=== PATIENT | male | born 1955 | race Caucasian/White ===

== ENCOUNTER 2018-03-19 14:01 | Emergency (ER) | payer MEDICAID, OTHER ==
[~2018-03-19] VITALS: Ht 180.3 cm; Wt 70.4 kg
[2018-03-19 14:20] VITALS: BP 193/106
[2018-03-19] MEDS ORDERED: BACDS PO (15:02)
== END 2018-03-19 15:30 | disposition home or self-care (01) ==
LOC: ER 14:02
DX: A49.02 Methicillin resistant Staphylococcus aureus infection, unspecified site (principal); I10 Essential (primary) hypertension
CPT/HCPCS: 99283

== ENCOUNTER 2018-04-18 11:26 | Emergency (ER) | payer MEDICAID ==
[~2018-04-18] VITALS: Ht 177.8 cm; Wt 72.7 kg
[~2018-04-18 11:26] MED LIST: BACDS PO
--- NOTE | 2018-04-18 11:47 | NUR ---
did belongings at 1140 2 bags
[2018-04-18 12:03] LABS: BASOPHILS % (AUTO) 0.7 % (0-1); EOSINOPHILS # (AUTO) 0.1 X10'3 (0-0.9); EOSINOPHILS % (AUTO) 0.9 % (0-6); HEMATOCRIT 43.2 % (42.0-52.0); HEMOGLOBIN 14.9 g/dl (14.0-17.9); LYMPHOCYTES # (AUTO) 2.3 X10'3 (1.1-4.8); LYMPHOCYTES % (AUTO) 31.9 % (21-51); MEAN CORPUSCULAR HEMOGLOBIN 29.7 PG (27.0-31.0); MEAN CORPUSCULAR HGB CONC 34.4 g/dL (33.0-36.5); MEAN CORPUSCULAR VOLUME 86.3 FL (78-98); MEAN PLATELET VOLUME 8.1 FL (7.4-10.4); MONOCYTES # (AUTO) 0.7 X10'3 (0-0.9); NEUTROPHILS # (AUTO) 4.2 X10'3 (1.8-7.7); NEUTROPHILS % (AUTO) 57.5 % (42-75); PLATELET COUNT 420 X10'3 (140-440); RED CELL DISTRIBUTION WIDTH 13.6 % (11.5-14.5); WHITE BLOOD COUNT 7.2 X10'3 (4.5-11.0)
[2018-04-18 12:12] LABS: ALANINE AMINOTRANSFERASE 28 U/L (12-78); ALBUMIN 4.1 G/DL (3.4-5.0); ALBUMIN/GLOBULIN RATIO 1.3 (1.1-1.5); ALKALINE PHOSPHATASE 81 IU/L (46-116); ANION GAP 12 (8-16); ASPARTATE AMINO TRANSFERASE 23 U/L (10-37); BILIRUBIN,TOTAL 0.8 MG/DL (0.1-1.0); BLOOD UREA NITROGEN 27 MG/DL (7-18); BUN/CREATININE RATIO 28.1 (5.4-32.0); CALCIUM 9.1 MG/DL (8.5-10.1); CHLORIDE 102 MMOL/L (99-107); CREATININE 0.96 MG/DL (0.60-1.10); GLUCOSE 100 MG/DL (70-104); POTASSIUM 3.9 MMOL/L (3.5-5.1); SODIUM 139 MMOL/L (135-145); TOTAL PROTEIN 7.3 G/DL (6.4-8.2); eGFR 80 ML/MIN
[2018-04-18 12:22] LABS: ETHANOL < 0.010 GM/DL (0.0-0.010)
[2018-04-18] MEDS ORDERED: LISI-645 PO (13:23)
[2018-04-18] MEDS ORDERED: ATEN-169 PO (13:23)
--- NOTE | 2018-04-18 13:24 | NUR ---
Received from main ER, report from oZfia. Pt unwilling to talk about events bringing him to ER today. States he has never been in psychiatric facility. He has never attempted suicide. Today, he insist he was not trying to harm himself. He does state he is under a lot of stress as he is going through a divorce and his son will be getting out of assisted in 3 weeks. He states he has been staying with friends half of the month, and in a hotel for the second half. He is calm, cooperative and follows direction. Dr Dunaway at nurses station and was made aware of consult.
[2018-04-18 13:34] LABS: URINE AMPHETAMINE SCREEN POSITIVE (Neg); URINE BARBITUATE SCREEN NEGATIVE (Neg); URINE BENZODIAZEPINES SCREEN NEGATIVE (Neg); URINE CANNABINOID SCREEN NEGATIVE (Neg); URINE COCAINE SCREEN NEGATIVE (Neg); URINE METHADONE SCREEN NEGATIVE (Neg); URINE OPIATE SCREEN NEGATIVE (Neg); URINE PHENCYCLIDINE SCREEN NEGATIVE (Neg)
[2018-04-18] MEDS ORDERED: atenolol 50mg tablet PO ONE (14:25)
[2018-04-18] MEDS ORDERED: lisinopril 20mg tablet PO ONE (14:25)
[2018-04-18] MEDS: methyl salicylate/menthol cream 85gm TP PRN (14:30)
--- NOTE | 2018-04-18 14:45 | NUR ---
Dr Raya at nurses station. He stated Dr Mcpherson will be seing pt today.
[2018-04-18] MEDS ORDERED: LORazepam 1 MG tablet PO ONE (15:45)
--- NOTE | 2018-04-18 17:25 | NUR ---
Pt appears to be restless. Ativan PO given.
[2018-04-18] MEDS ORDERED: risperiDONE 0.25mg tablet PO SCH (20:00)
--- NOTE | 2018-04-18 20:00 | NUR ---
Patient states there are bugs all over his bedding turning into fish. States it can only be seen with a black light. Patient continues to remove bedding stating there are bugs. Bedding was changed and patient continues to see bugs and keeps removing his bedding. MD notified, orders receiveed.
[2018-04-18] MEDS ORDERED: risperiDONE 0.5mg tablet PO ONE (20:20)
--- NOTE | 2018-04-18 21:49 | NUR ---
Packet sent to [facility]. Spoke to Gene to clarify receipt of packet. A copy of the 5710 sent.
--- NOTE | 2018-04-18 22:30 | NUR ---
Spoke to Gene @ [facility], packet didnot arrive, but was informed that packet had been sent during day shift.
--- NOTE | 2018-04-19 00:36 | NUR ---
Covering for RN Lunch break: Patient is resting in bed with eyes closed. Resp are even and unlabored. Appearing to sleep comfortably without concerns or issues noted. Will continue to monitor.
--- NOTE | 2018-04-19 06:37 | NUR ---
Up to bathroom. U/A obtained.
[2018-04-19 07:07] LABS: CLARITY,URINE SLIGHTLY CLOUDY (Clear); COLOR,URINE YELLOW (Yellow); GLUCOSE, URINE NEGATIVE (Neg); KETONES,URINE NEGATIVE (Neg); LEUKOCYTE ESTERASE ,URINE SMALL (Neg); NITRITES, URINE NEGATIVE (Neg); OCCULT BLOOD,URINE NEGATIVE (Neg); PROTEIN,URINE NEGATIVE (Neg); UROBILINOGEN,URINE 0.2 E.U/dL (0.2-1.0)
[2018-04-19 07:10] LABS: UA COLLECTION TYPE CLN CATCH MIDSTREAM
[2018-04-19 07:14] LABS: HYALINE CASTS 0-3 /LPF (NEGATIVE); MUCUS STRANDS MODERATE /LPF (Neg); SQUAMOUS EPITHELIAL CELL,UR MODERATE /LPF (FEW)
[2018-04-19 07:15] LABS: BACTERIA,URINE 2+ /HPF (Neg); RBC,URINE 0-2 /HPF (0-2)
[2018-04-19] MEDS: risperiDONE 0.5mg tablet PO SCH ×2 (08:11→20:34)
[2018-04-19] MEDS: lisinopril 20mg tablet PO SCH (08:11)
[2018-04-19] MEDS: atenolol 50mg tablet PO SCH (08:11)
--- NOTE | 2018-04-19 08:11 | NUR ---
Took all AM meds. Continues to be calm and cooperative with care.
--- NOTE | 2018-04-19 10:03 | NUR ---
Pt is sleeping.
[2018-04-19] MEDS: methyl salicylate/menthol cream 85gm TP PRN (13:34)
--- NOTE | 2018-04-19 18:18 | NUR ---
Received report from BRIANNA Lester. Patient resting comfortably. Addendum: 04/19/18 at 1826 by JAY Colleen cano.
--- NOTE | 2018-04-19 18:26 | NUR ---
Patient resting comfortably, having dinner.
[2018-04-20] MEDS: risperiDONE 0.5mg tablet PO SCH (08:35)
[2018-04-20] MEDS: atenolol 50mg tablet PO SCH (08:36)
[2018-04-20] MEDS: lisinopril 20mg tablet PO SCH (08:37)
[2018-04-20 09:12] VITALS: BP 124/72
--- NOTE | 2018-04-20 09:15 | NUR ---
Discharge Note Pt. evaluated by Mary Beth from [facility]. Determined to be safe to be discharged to home. Dr. Herman consulted, order given to d/c pt. Pt.d/c'd to home with all personal belongings as per inventory sheet, will f/u with primary care provider.
== END 2018-04-20 09:05 | disposition home or self-care (01) ==
LOC: ER 11:26
DX: F29 Unspecified psychosis not due to a substance or known physiological condition (principal); I10 Essential (primary) hypertension; M54.2 Cervicalgia; Z79.899 Other long term (current) drug therapy
CPT/HCPCS: 36415; 80053; 80305; 80320; 81001; 84443; 85025; 87077; 87088; 87186; 99285

== ENCOUNTER 2018-04-21 17:08 | Emergency (ER) | payer MEDICAID ==
[~2018-04-21] VITALS: Ht 177.8 cm; Wt 75.0 kg
[~2018-04-21 17:08] MED LIST changes: +ATEN-169 PO; -BACDS PO; +LISI-645 PO
[2018-04-21 17:12] VITALS: BP 180/102
--- NOTE | 2018-04-21 17:18 | NUR ---
PT SEEN IN TRIAGE BY LEYLA AND FOUND TO HAVE SKIN DISCOLORATION TO LEFT LOWER ABD. NO REDDNESS, NO SWELLING, NO PAIN.
== END 2018-04-21 17:27 | disposition home or self-care (01) ==
LOC: ER 17:08
DX: L81.9 Disorder of pigmentation, unspecified (principal); I10 Essential (primary) hypertension; Z86.14 Personal history of Methicillin resistant Staphylococcus aureus infection; Z79.899 Other long term (current) drug therapy
CPT/HCPCS: 99281

== ENCOUNTER 2018-05-08 04:55 | Emergency (ER) | payer MEDICAID ==
[~2018-05-08] VITALS: Ht 177.8 cm; Wt 56.8 kg
[2018-05-08 05:18] VITALS: BP 146/93
[2018-05-08] MEDS ORDERED: ketorolac trometh inj. 60 MG/2 ML VIAL IM ONE (05:35)
== END 2018-05-08 05:44 | disposition home or self-care (01) ==
LOC: ER 04:56
DX: J06.9 Acute upper respiratory infection, unspecified (principal); G89.29 Other chronic pain; M54.2 Cervicalgia; J32.0 Chronic maxillary sinusitis; I10 Essential (primary) hypertension
CPT/HCPCS: 96372; 99283; J1885

== ENCOUNTER 2018-08-27 00:06 | Emergency (ER) | payer MEDICAID ==
[~2018-08-27] VITALS: Ht 180.3 cm; Wt 76.0 kg
[2018-08-27 00:09] VITALS: BP 119/84
[2018-08-27] MEDS ORDERED: LORazepam 1 MG tablet PO ONE (02:50)
[2018-08-27] MEDS ORDERED: ESCI10TA PO (02:50)
[2018-08-27] MEDS ORDERED: aspirin 81mg tab.chew PO ONE (03:30)
[2018-08-27] MEDS ORDERED: citalopram 20mg tablet PO ONE (08:00)
== END 2018-08-27 03:45 | disposition home or self-care (01) ==
LOC: ER 00:07
DX: F32.9 Major depressive disorder, single episode, unspecified (principal); F41.9 Anxiety disorder, unspecified; I10 Essential (primary) hypertension; G89.29 Other chronic pain; F15.90 Other stimulant use, unspecified, uncomplicated; Z86.14 Personal history of Methicillin resistant Staphylococcus aureus infection; Z79.899 Other long term (current) drug therapy
CPT/HCPCS: 99284

== ENCOUNTER 2018-11-05 02:47 | Emergency (ER) | payer MEDICAID ==
[~2018-11-05] VITALS: Ht 180.3 cm; Wt 77.3 kg
[~2018-11-05 02:47] MED LIST changes: +ESCI10TA PO
[2018-11-05 02:54] VITALS: BP 160/94
[2018-11-05] MEDS ORDERED: AMOX-580 PO (04:09)
[2018-11-05] MEDS ORDERED: NAPR-56 PO (04:09)
[2018-11-05] MEDS ORDERED: amox tr/potassium clavulanate 875/125mg TAB PO ONE (04:10)
[2018-11-05] MEDS ORDERED: naproxen 500mg tablet PO ONE (04:10)
== END 2018-11-05 04:28 | disposition home or self-care (01) ==
LOC: ER 02:48
DX: K04.7 Periapical abscess without sinus (principal); I10 Essential (primary) hypertension; G89.29 Other chronic pain; F41.9 Anxiety disorder, unspecified; F15.90 Other stimulant use, unspecified, uncomplicated; F10.99 Alcohol use, unspecified with unspecified alcohol-induced disorder; Z86.14 Personal history of Methicillin resistant Staphylococcus aureus infection; Z79.899 Other long term (current) drug therapy; Y90.9 Presence of alcohol in blood, level not specified
CPT/HCPCS: 99283

== ENCOUNTER 2018-11-14 01:55 | Emergency (ER) | payer MEDICAID ==
[~2018-11-14] VITALS: Ht 177.8 cm; Wt 75.0 kg
[~2018-11-14 01:55] MED LIST changes: +AMOX-580 PO; +NAPR-56 PO
[2018-11-14 01:58] VITALS: BP 176/58
[2018-11-14] MEDS ORDERED: PENI500T2 PO (02:09)
[2018-11-14] MEDS ORDERED: IBUP-1984 PO (02:09)
[2018-11-14] MEDS ORDERED: HYDROcodone/acetaminophen 5mg/325mg tablet PO ONE (02:10)
== END 2018-11-14 02:17 | disposition home or self-care (01) ==
LOC: ER 01:56
DX: K02.9 Dental caries, unspecified (principal); I10 Essential (primary) hypertension; G89.29 Other chronic pain; F41.9 Anxiety disorder, unspecified; F15.90 Other stimulant use, unspecified, uncomplicated; Z86.14 Personal history of Methicillin resistant Staphylococcus aureus infection; Z79.899 Other long term (current) drug therapy
CPT/HCPCS: 99283

== ENCOUNTER 2018-11-24 03:29 | Emergency (ER) | payer MEDICAID ==
[~2018-11-24] VITALS: Ht 177.8 cm; Wt 75.0 kg
[~2018-11-24 03:29] MED LIST changes: +PENI500T2 PO
[2018-11-24 03:34] VITALS: BP 154/88
--- NOTE | 2018-11-24 03:40 | NUR ---
Security summoned to be on standby as the patient is agitated and vocal.
[2018-11-24] MEDS ORDERED: ESZO3TAB32 PO (04:32)
== END 2018-11-24 04:43 | disposition home or self-care (01) ==
LOC: ER 03:30
DX: G47.00 Insomnia, unspecified (principal); G89.29 Other chronic pain; M54.2 Cervicalgia; M54.9 Dorsalgia, unspecified; I10 Essential (primary) hypertension; F41.9 Anxiety disorder, unspecified; F15.90 Other stimulant use, unspecified, uncomplicated; F10.99 Alcohol use, unspecified with unspecified alcohol-induced disorder; Z86.14 Personal history of Methicillin resistant Staphylococcus aureus infection; Z79.899 Other long term (current) drug therapy; Y90.9 Presence of alcohol in blood, level not specified
CPT/HCPCS: 99283

== ENCOUNTER 2018-12-25 16:24 | Emergency (ER) | payer MEDICAID, OTHER ==
[~2018-12-25] VITALS: Ht 177.8 cm; Wt 77.0 kg
[~2018-12-25 16:24] MED LIST changes: -AMOX-580 PO; +ESZO3TAB32 PO; -NAPR-56 PO; -PENI500T2 PO
[2018-12-25 16:32] VITALS: BP 170/111
[2018-12-25] MEDS ORDERED: PENI500T2 PO (17:42)
[2018-12-25] MEDS ORDERED: IBUP-1984 PO (17:42)
[2018-12-25] MEDS ORDERED: HYDR-4383 PO (17:42)
== END 2018-12-25 18:07 | disposition home or self-care (01) ==
LOC: ER 16:24
DX: K02.9 Dental caries, unspecified (principal); H92.02 Otalgia, left ear; R51 Headache; R22.0 Localized swelling, mass and lump, head; I10 Essential (primary) hypertension; G89.29 Other chronic pain; F41.9 Anxiety disorder, unspecified; F15.90 Other stimulant use, unspecified, uncomplicated; Z86.14 Personal history of Methicillin resistant Staphylococcus aureus infection; Z79.899 Other long term (current) drug therapy; Z79.1 Long term (current) use of non-steroidal anti-inflammatories (NSAID); Z79.2 Long term (current) use of antibiotics
CPT/HCPCS: 99283

== ENCOUNTER 2018-12-27 12:19 | Emergency (ER) | payer MEDICAID, OTHER ==
[~2018-12-27] VITALS: Ht 177.8 cm; Wt 73.0 kg
[~2018-12-27 12:19] MED LIST changes: +HYDR-4383 PO; +IBUP-1984 PO; +PENI500T2 PO
[2018-12-27] MEDS ORDERED: clindamycin 150mg capsule PO ONE (13:05)
[2018-12-27] MEDS ORDERED: CLIN300C70 PO (13:10)
[2018-12-27 13:18] VITALS: BP 115/64
[2018-12-28] MEDS ORDERED: PENI250T2 PO (17:41)
== END 2018-12-27 13:22 | disposition home or self-care (01) ==
LOC: ER 12:19
DX: K08.89 Other specified disorders of teeth and supporting structures (principal); K02.9 Dental caries, unspecified; I10 Essential (primary) hypertension; G89.29 Other chronic pain; F41.9 Anxiety disorder, unspecified; F15.90 Other stimulant use, unspecified, uncomplicated; F10.99 Alcohol use, unspecified with unspecified alcohol-induced disorder; Z86.14 Personal history of Methicillin resistant Staphylococcus aureus infection; Z79.899 Other long term (current) drug therapy; Y90.9 Presence of alcohol in blood, level not specified
CPT/HCPCS: 99283

== ENCOUNTER 2018-12-28 16:40 | Emergency (ER) | payer OTHER ==
[~2018-12-28] VITALS: Ht 177.8 cm; Wt 75.8 kg
[~2018-12-28 16:40] MED LIST changes: +CLIN300C70 PO
[2018-12-28 17:02] VITALS: BP 163/109
[2018-12-28] MEDS ORDERED: CefTRIAXone 250MG IM Kit w/LIDOcaine IM ONE (17:40)
[2018-12-28] MEDS ORDERED: PENI250T2 PO (17:41)
== END 2018-12-28 17:59 | disposition home or self-care (01) ==
LOC: ER 16:41
DX: K08.89 Other specified disorders of teeth and supporting structures (principal); I10 Essential (primary) hypertension; G89.29 Other chronic pain; F41.9 Anxiety disorder, unspecified; F15.90 Other stimulant use, unspecified, uncomplicated; F10.99 Alcohol use, unspecified with unspecified alcohol-induced disorder; Z86.14 Personal history of Methicillin resistant Staphylococcus aureus infection; Z79.899 Other long term (current) drug therapy; Y90.9 Presence of alcohol in blood, level not specified
CPT/HCPCS: 96372; 99283; J0696

== ENCOUNTER 2019-01-02 08:43 | Emergency (ER) | payer OTHER ==
[~2019-01-02] VITALS: Ht 177.8 cm; Wt 77.3 kg
[~2019-01-02 08:43] MED LIST changes: -IBUP-1984 PO; +PENI250T2 PO
[2019-01-02 09:16] VITALS: BP 191/105
[2019-01-02] MEDS ORDERED: ATEN50TA PO (13:48)
[2019-01-02] MEDS ORDERED: LISI40TA4 PO (13:48)
[2019-01-02] MEDS ORDERED: MUPI22OI30 TOP (13:48)
== END 2019-01-02 10:14 | disposition left against medical advice (07) ==
LOC: ER 08:43
DX: M79.644 Pain in right finger(s) (principal); Z53.21 Procedure and treatment not carried out due to patient leaving prior to being seen by health care provider

== ENCOUNTER 2019-01-02 12:17 | Emergency (ER) | payer OTHER ==
[~2019-01-02] VITALS: Ht 177.8 cm; Wt 77.3 kg
[2019-01-02 13:04] VITALS: BP 157/93
[2019-01-02] MEDS ORDERED: MUPI22OI30 TOP (13:48)
[2019-01-02] MEDS ORDERED: LISI40TA4 PO (13:48)
[2019-01-02] MEDS ORDERED: ATEN50TA PO (13:48)
== END 2019-01-02 14:02 | disposition home or self-care (01) ==
LOC: ER 12:17
DX: L02.511 Cutaneous abscess of right hand (principal); I10 Essential (primary) hypertension; G89.29 Other chronic pain; F41.9 Anxiety disorder, unspecified; F15.90 Other stimulant use, unspecified, uncomplicated; F10.99 Alcohol use, unspecified with unspecified alcohol-induced disorder; Z76.0 Encounter for issue of repeat prescription; Z86.14 Personal history of Methicillin resistant Staphylococcus aureus infection; Z79.899 Other long term (current) drug therapy; Y90.9 Presence of alcohol in blood, level not specified
CPT/HCPCS: 26010; 99283

== ENCOUNTER 2019-01-27 11:55 | Emergency (ER) | payer MEDICAID ==
[~2019-01-27] VITALS: Ht 177.8 cm; Wt 77.0 kg
[~2019-01-27 11:55] MED LIST changes: +ATEN50TA PO; +LISI40TA4 PO; -PENI250T2 PO; -PENI500T2 PO
[2019-01-27 11:57] VITALS: BP 158/68
== END 2019-01-27 15:11 | disposition left against medical advice (07) ==
LOC: ER 11:55
DX: R60.9 Edema, unspecified (principal); Z53.21 Procedure and treatment not carried out due to patient leaving prior to being seen by health care provider

== ENCOUNTER 2019-02-15 11:04 | Emergency (ER) | payer MEDICAID ==
[~2019-02-15] VITALS: Ht 177.8 cm; Wt 77.3 kg
[~2019-02-15 11:04] MED LIST changes: -CLIN300C70 PO; -LISI40TA4 PO
[2019-02-15 11:15] VITALS: BP 162/116
[2019-02-15] MEDS ORDERED: BACDS PO (12:05)
[2019-02-15] MEDS ORDERED: LIDOcaine 1% W/epiNEPHrine 1:100,000 20ml vial ONE (14:00)
== END 2019-02-15 12:25 | disposition home or self-care (01) ==
LOC: ER 11:05
DX: L02.511 Cutaneous abscess of right hand (principal); I10 Essential (primary) hypertension; G89.29 Other chronic pain; F41.9 Anxiety disorder, unspecified; Z86.14 Personal history of Methicillin resistant Staphylococcus aureus infection; Z79.899 Other long term (current) drug therapy
CPT/HCPCS: 10060; 99283

== ENCOUNTER 2019-02-27 15:45 | Emergency (ER) | payer MEDICAID ==
[~2019-02-27] VITALS: Ht 177.8 cm; Wt 76.6 kg
[2019-02-27 15:54] VITALS: BP 126/62
[2019-02-27] MEDS ORDERED: AMOX-422 PO (16:14)
== END 2019-02-27 16:25 | disposition home or self-care (01) ==
LOC: ER 15:45
DX: K04.7 Periapical abscess without sinus (principal); K02.9 Dental caries, unspecified; I10 Essential (primary) hypertension; G89.29 Other chronic pain; F15.90 Other stimulant use, unspecified, uncomplicated; Z86.14 Personal history of Methicillin resistant Staphylococcus aureus infection; Z79.899 Other long term (current) drug therapy
CPT/HCPCS: 99283

== ENCOUNTER 2019-03-07 06:00 | Emergency (ER) | payer MEDICAID ==
[~2019-03-07] VITALS: Ht 177.8 cm; Wt 77.3 kg
[~2019-03-07 06:00] MED LIST changes: +AMOX-422 PO
[2019-03-07 06:32] VITALS: BP 143/89
[2019-03-07] MEDS ORDERED: DOXYCYCLINE 100MG CAPSULE PO STA (06:55)
[2019-03-07] MEDS ORDERED: DOXY100C43 PO (07:09)
== END 2019-03-07 09:33 | disposition home or self-care (01) ==
LOC: ER 06:01
DX: L02.511 Cutaneous abscess of right hand (principal); I10 Essential (primary) hypertension; G89.29 Other chronic pain; F41.9 Anxiety disorder, unspecified; F15.90 Other stimulant use, unspecified, uncomplicated; Z86.14 Personal history of Methicillin resistant Staphylococcus aureus infection; Z79.2 Long term (current) use of antibiotics; Z79.899 Other long term (current) drug therapy
CPT/HCPCS: 10060; 87070; 87077; 87186; 99283

== ENCOUNTER 2019-03-13 03:24 | Emergency (ER) | payer MEDICAID ==
[~2019-03-13] VITALS: Ht 177.8 cm; Wt 77.3 kg
[~2019-03-13 03:24] MED LIST changes: +DOXY100C43 PO
[2019-03-13] MEDS ORDERED: TAM75C PO (03:39)
[2019-03-13] MEDS ORDERED: acetaminophen 325mg tablet PO ONE (03:40)
[2019-03-13 03:46] VITALS: BP 168/72
== END 2019-03-13 03:51 | disposition home or self-care (01) ==
LOC: ER 03:25
DX: J11.1 Influenza due to unidentified influenza virus with other respiratory manifestations (principal); I10 Essential (primary) hypertension; G89.29 Other chronic pain; F41.9 Anxiety disorder, unspecified; F15.90 Other stimulant use, unspecified, uncomplicated; F10.99 Alcohol use, unspecified with unspecified alcohol-induced disorder; Z86.14 Personal history of Methicillin resistant Staphylococcus aureus infection; Z79.899 Other long term (current) drug therapy; Y90.9 Presence of alcohol in blood, level not specified
CPT/HCPCS: 99283

== ENCOUNTER 2019-04-07 08:40 | Emergency (ER) | payer MEDICAID, OTHER ==
[~2019-04-07] VITALS: Ht 177.8 cm; Wt 77.3 kg
[~2019-04-07 08:40] MED LIST changes: -AMOX-422 PO; -DOXY100C43 PO
[2019-04-07 08:43] VITALS: BP 162/95
[2019-04-07] MEDS ORDERED: DOXY100C76 PO (09:32)
== END 2019-04-07 09:41 | disposition home or self-care (01) ==
LOC: ER 08:41
DX: L02.413 Cutaneous abscess of right upper limb (principal); L02.416 Cutaneous abscess of left lower limb; I10 Essential (primary) hypertension; G89.29 Other chronic pain; F41.9 Anxiety disorder, unspecified; F15.90 Other stimulant use, unspecified, uncomplicated; Z86.14 Personal history of Methicillin resistant Staphylococcus aureus infection
CPT/HCPCS: 10060; 99283

== ENCOUNTER 2019-08-08 14:56 | Emergency (ER) | payer MEDICAID, OTHER ==
[~2019-08-08] VITALS: Ht 177.8 cm; Wt 75.0 kg
[2019-08-08 15:11] VITALS: BP 130/77
[2019-08-08] MEDS ORDERED: NAPR-56 PO (16:21)
[2019-08-08] MEDS ORDERED: PENI250T2 PO (16:21)
== END 2019-08-08 16:34 | disposition home or self-care (01) ==
LOC: ER 14:56
DX: K08.89 Other specified disorders of teeth and supporting structures (principal); G89.29 Other chronic pain; I10 Essential (primary) hypertension; F41.9 Anxiety disorder, unspecified; F15.90 Other stimulant use, unspecified, uncomplicated; Z86.14 Personal history of Methicillin resistant Staphylococcus aureus infection; Z72.89 Other problems related to lifestyle; Z79.899 Other long term (current) drug therapy
CPT/HCPCS: 99283

== ENCOUNTER → 2022-12-02 | Emergency (ER) | payer MEDICARE, MEDICAID ==
[~2022-12-02] VITALS: Ht 177.8 cm; Wt 90.0 kg
[~2022-12-02] MED LIST changes: +TETanus/Pertussis (Acell)/Diphther VAC/PF (Tdap-Adult) 0.5ml syringe IMVAC ONE
[2022-12-02 17:02] VITALS: BP 165/92; PULSE 65; RESP 16; TEMP 98.2; O2SAT 98
== END | disposition home or self-care (01) ==
LOC: ER 11:08
DX: S61.002A Unspecified open wound of left thumb without damage to nail, initial encounter (principal); G89.29 Other chronic pain; M54.9 Dorsalgia, unspecified; I10 Essential (primary) hypertension; F31.9 Bipolar disorder, unspecified; F15.10 Other stimulant abuse, uncomplicated; X58.XXXA Exposure to other specified factors, initial encounter; Y93.89 Activity, other specified; Y92.89 Other specified places as the place of occurrence of the external cause; Y99.8 Other external cause status
CPT/HCPCS: 90471; 90715; 99283; A6222; J7030; A6258; A6449